=== PATIENT | male | born 1995 | race Caucasian/White ===

== ENCOUNTER 2016-08-22 14:14 | Emergency (ER) | payer BC ==
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
[2016-08-22 15:43] LABS: BASOPHILS PERCENT AUTO 0.1 % (0.2-1.2); EOSINOPHILS PERCENT AUTO 0.4 % (0.0-4.0); HEMATOCRIT 45.5 % (40.0-52.0); HEMOGLOBIN 15.9 g/dL (14.0-18.0); LYMPHOCYTES PERCENT AUTO 20.6 % (25.0-50.0); MEAN CORPUSCULAR HEMOGLOBIN 29.9 pg (26.0-32.0); MEAN CORPUSCULAR HGB CONC 34.9 g/dL (32.0-36.0); MEAN CORPUSCULAR VOLUME 85.5 fL (78.0-93.0); NEUTROPHILS PERCENT AUTO 71.9 % (50.0-80.0); RDW CV 12.6 % (10.0-15.0); RED BLOOD CELL COUNT 5.32 x10^6/uL (4.5-6.0)
[2016-08-22 16:06] LABS: BARBITUATES,URINE NEGATIVE (NEGATIVE); BENZODIAZEPINES,URINE NEGATIVE (NEGATIVE); COCAINE,URINE NEGATIVE (NEGATIVE); MARIJUANA,URINE NEGATIVE (NEGATIVE); METHADONE,URINE NEGATIVE (NEGATIVE); METHAMPHETAMINE,URINE NEGATIVE (NEGATIVE); METHYLENEDIOXYMETHAMP,UR NEGATIVE (NEGATIVE); OPIATES,URINE NEGATIVE (NEGATIVE); POC DRUG SCRN UR NEG CONTROL ACCEPTABLE (ACCEPTABLE); POC DRUG SCRN UR POS CONTROL ACCEPTABLE (ACCEPTABLE); URINE CASSETTE LOT NUMBER 163631
[2016-08-22 16:08] LABS: A/G RATIO 1.67; ALBUMIN 4.5 g/dL (3.4-5.0); ALKALINE PHOSPHATASE 70 U/L (46-116); BILIRUBIN TOTAL 0.5 mg/dL (0.2-1.0); CHLORIDE,CL 105 mmol/L (98-107); CREATININE 0.8 mg/dL (0.70-1.30); EST CRCL DRUG DOSING (CG) 151.47 mL/min; ESTIMATED GFR > 60; GLUCOSE RANDOM 87 mg/dL (74-106)
[2016-08-22 16:29] LABS: C-REACTIVE PROTEIN < 0.2 mg/dL (<=0.9)
[2016-08-22 19:42] VITALS: BP 144/78
== END 2016-08-22 20:05 | disposition other institution (70) ==
LOC: VM.ED 14:14
DX: F32.9 Major depressive disorder, single episode, unspecified (principal); F41.9 Anxiety disorder, unspecified
CPT/HCPCS: 80053; 80305; 80338; 84443; 85025; 86140; 99285; G0480; 36415